=== PATIENT | male | born 1990 | race Two or more races ===

== ENCOUNTER → 2017-08-05 | Outpatient (CLI) | payer OTHER | LOC: FIMAGING 08:59 | PROVIDERS: ATTEND Radiology Diagnostic Radiology | DX: I86.1 Scrotal varices (principal) ==

== ENCOUNTER 2017-11-13 07:24 | Day surgery (SDC) | payer OTHER ==
[2017-11-13] MEDS ORDERED: fentaNYL 100 MCG/2 ML INJ IVP PRN (07:32)
[2017-11-13] MEDS ORDERED: MIDAZOLAM 2 MG/2 ML VIAL IVP PRN (07:32)
[2017-11-13] MEDS ORDERED: NALOXONE HCL 0.4 MG/ML INJ IVP PRN (07:32)
[2017-11-13] MEDS ORDERED: FLUMAZENIL 0.5 MG/5 ML MDV IVP PRN (07:32)
[2017-11-13] MEDS ORDERED: MEPERIDINE 25 MG/ML SYR IVP PRN (07:32)
[2017-11-13] MEDS ORDERED: NS 1,000 ML IV SCH (07:45)
--- NOTE | 2017-11-13 08:52 | PDGENHP ---
History & Physical Chief Complaint: BILATERAL TESTICULAR PAIN. S/P LIGATION AT AGE14. History of Present Illness: PAIN IS WORSE WITH PROLONGED SITTING. WE'VE HAD LOTS OF DISCUSSIONS ON THE PHONE, AND HAVE HAD SEVERAL CONSULTATIONS. Pertinent Past, Social, Family History: WELL CONTROLLED ASTHMA. NON-SMOKER. Relevant Physical Exam: IN NO DISTRESS WHILE SUPINE. Cardiorespiratory Assessment: RRR, CTA
--- NOTE | 2017-11-13 08:53 | PDPROPOC ---
Sedation Plan of Care Sedation Plan of Care: vital signs stable, mental status noted, patient educated of risks, benefits, alternatives, patient can tolerate sedation ASA Classification: ASA 1 Planned drugs: fentanyl, midazolam Mallampati Score: Class 1 Mallampati Reference Image: Patient passed 3-3-2 rule?: Yes
[2017-11-13] MEDS ORDERED: IOPAMIDOL (ISOVUE-300) 100 ML BTL ONE ×2 (09:54→10:06)
[2017-11-13] MEDS ORDERED: LIDOCAINE 1% 300 MG/30 ML SDV ONE (09:54)
[2017-11-13] MEDS ORDERED: ACETAMINOPHEN 325 MG TAB PO PRN (11:26)
[2017-11-13] MEDS ORDERED: ONDANSETRON 4 MG/2 ML VIAL IVP PRN (11:26)
--- NOTE | 2017-11-13 11:28 | PDRADPN ---
Radiology Procedure Note Date of Procedure: 11/13/17 Radiologist: Rhonda Ordonez Anesthesia: IV Sedation Pre-op Diagnosis: TESTICULAR VARICOCELES Post-op Diagnosis: SAME Indication: SCROTAL PAIN Procedure: BILATERAL RENAL AND INTERNAL ILIAC VENOGRAPHY Finding(s): NONE Inf/Abcess present in the surg proc area at time of surgery?: No Complications: NONE
[2017-11-13 13:33] VITALS: BP 114/61
== END 2017-11-13 13:30 | disposition home or self-care (01) ==
LOC: FIMAGING 07:24
PROVIDERS: ATTEND Specialist
PROC: 06H Lower Veins, Insertion (ICD-10-PCS; principal; 2017-11-13 10:46)
PROC: 06HC33Z Insertion of Infusion Device into Right Common Iliac Vein, Percutaneous Approach (ICD-10-PCS; principal; 2017-11-13 10:46)
PROC: 06HY33Z Insertion of Infusion Device into Lower Vein, Percutaneous Approach (ICD-10-PCS; principal; 2017-11-13 10:46)
PROC: 06HD33Z Insertion of Infusion Device into Left Common Iliac Vein, Percutaneous Approach (ICD-10-PCS; principal; 2017-11-13 10:46)
PROC: 06HB33Z Insertion of Infusion Device into Left Renal Vein, Percutaneous Approach (ICD-10-PCS; principal; 2017-11-13 10:46)
DX: I86.1 Scrotal varices (principal); N50.819 Testicular pain, unspecified
CPT/HCPCS: 36012; 75825; 99152; 99153; C1769; J1644; J2250; J2310; J3010; Q9967